=== PATIENT | female | born 1990 | race Caucasian/White ===

== ENCOUNTER 2025-08-20 15:07 | Emergency (ER) | payer OTHER, SELFPAY ==
--- OUTSIDE RECORDS SUMMARY | 2024-08-13 03:00 | XMS_ITS ---
Author Organization [facility] Address [address] [place] [address] Care Team Providers Care Bullet Assembly Press Setter Operator Name Role Phone Jackie Zaman Primary Care Provider [phone] Migration, Provider Unavailable Unavailable REASON FOR VISIT [facility] [place] Encounter Location Date Provider Diagnosis [facility] [address] [place] [address] 08/13/2024 Provider Migration Plan Of Treatment Medication Medication Name Sig Start Date Stop Date Notes Carafate 1 GM Tablet 1 Oral four times a day; Duration: 14 08/18/2023 08/31/2023 Benzonatate 200 MG Capsule 1 Oral three times a day; Duration: 0 07/29/2023 07/29/2023 ,PRN Reason:for cough Azithromycin 250 MG Tablet 2 Oral every day; Duration: 1 07/29/2023 07/29/2023 NexIUM 40 MG Capsule Delayed Release 1 Oral every day; Duration: 14 08/18/2023 08/31/2023 Progress Notes * Chanel FERNANDEZB:1990 ([age] yo F)Acc No.[id number]:08/13/2024 Patient: Faizan SAUNDRAMadai BARRAGAN :1990 A ge:34 Y S ex:Female Phone: Address:[address], [place], [address] * Refills Stop Carafate Tablet, 1 GM, Oral, 56, 1, four times a day, 14 Stop Azithromycin Tablet, 250 MG, Oral, 6, 2, every day, 1 Stop NexIUM Capsule Delayed Release, 40 MG, Oral, 14, 1, every day, 14 Stop Benzonatate Capsule, 200 MG, Oral, 30, 1, three times a day, 0 Subjective: * Chief Complaints: * E MR-Flako Objective: Past Vitals:* 09/01/2023 BP: 138/89 mm Hg, HR: 71 /mi n, Oxygen sat %: 96 %, Wt: 245.37 lbs, Wt-k.30 kg * * Date:
--- OUTSIDE RECORDS SUMMARY | 2024-08-14 03:00 | XMS_ITS ---
Author Organization [facility] Address [address] [place] [id number] Care Team Providers Care Grinding Operator Name Role Phone Jackie Zaman Primary Care Provider [phone] Migration, Provider Unavailable Unavailable Allergies Allergen (clinical drug ingredient) Drug/Non Drug Allergy documented on EMR Reaction Allergy Type Onset Date Status amoxicillin Amoxicillin Unknown Drug Allergy 07/29/2023 Ac tive REASON FOR VISIT EMR-Flako Encounters Encounter Location Date Provider Diagnosis [facility] [address] [place] [address] 08/14/2024 Provider Migration Plan Of Treatment No Information Progress Notes * Zheng FERNANDEZShayB:1990 ([age] yo F)Acc No.[id number]:08/14/2024 Patient: Madai CALERO :1990 A ge:34 Y S ex:Female Phone: Address:[address], [place], [address] Subjective: * Chief Complaints: * E MR-Flako * Allergies: A moxicillin: Allergy - Onset Date 07/29/2023 Objective: Past Vitals:* 09/01/2023 BP: 138/89 mm Hg, HR: 71 /mi n, Oxygen sat %: 96 %, Wt: 245.37 lbs, Wt-k.30 kg * * Date:
--- OUTSIDE RECORDS SUMMARY | 2025-08-19 09:16 | XMS_ITS | Encounter Summary ---
Author Organization [facility] Address [facility] [place] [address] Care Team Providers Care Badger Distiller Operator Name Role Phone Timothy Aviles MD Primary Care Provider + [phone] Reason for Visit * Reason Comments Breast Pain Encounter Details Date Type Department Care Team (Late st Contact Info) Description 08/19/2025 9:16 AM RUSSIAN LANGUAGE INSTRUCTOR - 08/19/2025 10:20 AM [facility] Emergency [facility] Emergency Room [address] [place] [address] Anna Paiz MD [address] [place] [id number] Breast Pain Discharge Disposition: Home or Self Care (Routine Discharge) Social History Tobacco Use Types Packs/Day Years Used Date Smoking Tobacco: Never Smokeless Tobacco: Never Alcohol Use Standard Drinks/Week Comments Yes 0 (1 standard drink = 0.6 oz pur e alcohol) socially Humiliation, Afraid, Rape, and Kick questionnair e Answer Date Recorded Within the last year, have y ou been afraid of your partner or ex-partner? No 03/28/2023 Within the last year, have y ou been humiliated or emotionally abused in other ways by your partner or ex-partner? No Within the last year, have y ou been kicked, hit, slapped, or otherwise physically hurt by your partner or ex-partner? No 03/28/2023 Within the last year, have y ou been raped or forced to have any kind of sexual activity by your partner or ex-partner? No 03/28/2023 Social Connection and Isolation Panel Answer Date Recorded In a typical week, how many times do you talk on the phone with family, friends, or neighbors? More than three times a week 03/23/2023 How often do you get togethe r with friends or relatives? More than three times a week 03/23/2023 How often do you attend [facility] or protestant services? 1 to 4 times per year 03/23/2023 Do you belong to any clubs o r organizations such as yarsani groups, unions, fraternal or athletic groups, or school groups? No 03/23/2023 How often do you attend meet ings of the clubs or organizations you belong to? Never 03/23/2023 Are you , , di vorced, , never , or living with a partner? 03/23/2023 AUDIT-C Answer Date Recorded Q1: How often do you have a drink containing alc ohol? 2-4 times a month 03/23/2023 Q2: How many drinks containi ng alcohol do you have on a typical day when you are drinking? 3 or 4 03/23/2023 Q3: How often do you have si x or more drinks on one occasion? Monthly 03/23/2023 Overall Financial Resource Strain (CARDIA) Answe r Date Recorded How hard is it for you to pa y for the very basics like food, housing, medical care, and heating? Not hard at all 03/28/2023 PHQ-2 Answer Date Recorded Patient Health Questionnaire-2 Score 0 03/23/2023 [facility] - Occupational Stress Questionnaire Answer Date Recorded Do you feel stress - tense, restless, nervous, or anxious, or unable to sleep at night because your mind is troubled all the time - these days? Not at all 03/23/2023 Exercise Vital Sign Answer Date Recorde d On average, how many days pe r week do you engage in moderate to strenuous exercise (like a brisk walk)? 2 days 03/23/2023 On average, how many minutes do you engage in exercise at this level? 20 min 03/23/2023 Hunger Vital Sign Answer Date Recorded Within the past 12 months, y ou worried that your food would run out before you got the money to buy more. Never true 03/28/20 Within the past 12 months, t he food you bought just didn't last and you didn't have money to get more. Never true 03/28/2023 PRAPARE - Transportation Answer Date Re corded In the past 12 months, has l ack of transportation kept you from medical appointments or from getting medications? No 03/14 In the past 12 months, has l ack of transportation kept you from meetings, work, or from getting things needed for daily living? No 03/28/2023 Housing Stability Vital Sign Answer Markell e Recorded In the last 12 months, was t here a time when you were not able to pay the mortgage or rent on time? No 03/28/2023 In the last 12 months, how many places have you lived? 1 03/28/2023 In the last 12 months, was t here a time when you did not have a steady place to sleep or slept in a fci (including now)? No 03/28/2023 Comments No Sex and Gender Information Value Date Recorded Sex Assigned at Female 10/05/2024 3:41 PM RUSSIAN LANGUAGE INSTRUCTOR Legal Sex Female 9:04 PM CDT Gender Identity Not on file Sexual Orientation Not on file documented as of this encounter Last Filed Vital Signs Vital Sign Reading Time Taken Comments Blood Pressure 132/87 08/19/2025 9:20 AM RUSSIAN LANGUAGE INSTRUCTOR Pulse 85 08/19/2025 9:20 AM RUSSIAN LANGUAGE INSTRUCTOR Temperature 36.3 C (97.4 F) 08/19/2025 9:20 AM RUSSIAN LANGUAGE INSTRUCTOR Respiratory Rate 18 08/19/2025 9:20 AM RUSSIAN LANGUAGE INSTRUCTOR Oxygen Saturation 100% 08/19/2025 9:20 AM RUSSIAN LANGUAGE INSTRUCTOR Inhaled Oxygen Concentration - - Weight 104.3 kg (230 lb) 08/19/2025 9:20 AM RUSSIAN LANGUAGE INSTRUCTOR Height 162.6 cm (5' 4) 08/19/2025 9:20 AM RUSSIAN LANGUAGE INSTRUCTOR Body Mass Index 39.48 08/19/2025 9:20 AM RUSSIAN LANGUAGE INSTRUCTOR documented in this encounter Functional Status * Are you deaf or do you have serious difficulty hearing Answer Date of Assessment Author Status No 03/25/2023 5:28 PM CDT Cher Haq , RN Active * Are you blind or do you have serious difficulty seeing, even when wearing glasses? Answer Date of Assessment Author Status No 03/25/2023 5:28 PM Cher Vences , RN Active * Do you have serious difficulty walking or climbing stairs? Answer Date of Assessment Author Status No 03/25/2023 5:28 PM Cher Vences , RN Active * Do you have difficulty dressing or bathing? Answer Date of Assessment Author Status No 03/25/2023 5:28 PM Cher Vences , RN Active * Because of a physical, mental, or emotional condition, do you have difficulty doing errands alone such as visiting a doctor's office or shopping? Answer Date of Assessment Author Status No 03/25/2023 5:28 PM Cher Vences , RN Active * Calculated C-SSRS Risk Score (Lifetime/Recent) Answer Date of Assessment Author Status No Risk Indicated 08/19/2025 9:20 AM RUSSIAN LANGUAGE INSTRUCTOR Tanesha Malone RN Active * Ava Suicide Severity Rating Scale (Screener/Recent Self-Report) Question Answer Date of Assessment Author Status 1. Wish to be (Past 1 Month) No 08/19/2025 9:20 AM Magy Carrasquillo RN Act tonny 2. Non-Specific Active Suicidal Thoughts (Past 1 Month) No 08/19/2025 9:20 AM Magy Carrasquillo RN Act tonny 6. Suicidal Behavior (Lifetime) No 08/19/2025 9:20 AM RUSSIAN LANGUAGE INSTRUCTOR Magy Malone RN Act tonny documented as of this encounter Mental Status * Because of a physical, mental, or emotional condition, do you have serious difficulty concentrating, remembering, or making decisions? Answer Entry Date Author Status No 03/25/2023 5:28 PM Cher Vences RN Active documented in this encounter Discharge Instructions * Discharge Instructions* Anna Paiz MD - 08/19/2025 10:09 AM RUSSIAN LANGUAGE INSTRUCTOR Take the antibiotic clindamycin as prescribed. Take tylenol up to 1000mg every 8 hours as needed for pain. If you have worsening pain, fever, or other concerning symptoms, return to the ER. You may try applying warm compresses to the area. You will need follow up with a general surgeon for additional testing. Call on Thursday for an appointment. Tell them you were in the ER today and need recheck next week. Mammogram and ultrasound may all be arranged at the appointment. You may also need further testing. IAN LANGUAGE INSTRUCTOR IAN LANGUAGE INSTRUCTOR * Attachments The following attachments cannot be sent through Care Everywhere. * Common breast problems (British) documented in this encounter Medications at Time of Discharge clindamycin (CLEOCIN) 300 MG capsule Take 1 capsule (300 mg total) by mouth 3 (three) times daily for 10 days. 30 capsule 08/19/2025 08/29/2025 Bacillus Coagulans-Inulin (PROBIOTIC-PREBI OTIC OR) Take 1 chewable tablet by mouth daily. biotin 300 MCG Tab Take 1 tablet (300 mcg total) by mouth daily. calcium acetate (PHOSLO) 667 MG tablet Take 1 tablet (667 mg total) by mouth daily. Cholecalciferol (VITAMIN D3 ADULT GUMMIES OR) Take 1 chewable tablet by mouth daily. cranberry 500 MG Cap Take 1 capsule by mouth daily. Cyanocobalamin (B-12) 5000 MCG SL Tab ferrous sulfate 220 (44 Fe) MG/5ML liquid Take 5 mLs (220 mg total) by mouth daily. Multiple Vitamins-Mineral s (BARIATRIC FUSION) Chew Tab Chew 1 chewable tablet by mouth daily. traMADol (ULTRAM) 50 MG tabletIndication s:Acute Pain < 7 Day Supply Take 1 tablet (50 mg total) by mouth every 6 (six) hours as needed. Indications: Acute Pain < 7 Day Supply 20 tablet 03/08/2025 documented as of this encounter ED Notes * Magy Malone RN - 08/19/2025 9:18 AM CST Patient complaining of swollen left breast from her nipple up into her armpit. She can palpate a lump. Also complaining of discharge. Hx of piercings that she took out 6 months ago Magy GONZALEZ IAN LANGUAGE INSTRUCTOR IAN LANGUAGE INSTRUCTOR IAN LANGUAGE INSTRUCTOR * Anna Paiz MD - 08/19/2025 9:18 AM CST ED NOTE Chief Complaint Chief Complaint Patient presents with Breast Pain History of Present Illness Madai Guevara is a 35-year-old female who presents today for evaluation of discomfort in left breast, upper outer area with pain extending to left axilla. Also noted bloody discharge from left nipple that began approximately 1 week ago. She had nipple piercings that she removed approximately 6 months ago after her developed discharge.The drainage stopped and symptoms resolved at that time. Pt is a former smoker. Vapes nicotine. Uses marijuana gummies on occasion. Drinks one night per week, max 4 drinks. Had a mammogram in 2012. None since Denies . No hormonal contraception. Not breast feeding. Youngest child age 12. Works at a [employer]. Has active job. . Medical History PAST MEDICAL HISTORY: Past Medical History[1] PAST SURGICAL HISTORY: Past Surgical History[2] FAMILY HISTORY: Family History[3] MEDICATIONS: Prior to Admission medications Medication Sig Start Date End Date Taking? Authorizing Provider clindamycin (CLEOCIN) 300 MG capsule Take 1 capsule (300 mg total) by mouth 3 (three) times daily for 10 days. 08/19/25 08/29/25 Yes Anna Paiz MD Bacillus Coagulans-Inulin (PROBIOTIC-PREBIOTIC OR) Take 1 chewable tablet by mouth daily. Default History Genericprovider biotin 300 MCG Tab Take 1 tablet (300 mcg total) by mouth daily. Default History Genericprovider calcium acetate (PHOSLO) 667 MG tablet Take 1 tablet (667 mg total) by mouth daily. Default HistoryGenericprovider Cholecalciferol (VITAMIN D3 ADULT GUMMIES OR) Take 1 chewable tablet by mouth daily. Default History Genericprovider cranberry 500 MG Cap Take 1 capsule by mouth daily. Default History Genericprovider Cyanocobalamin (B-12) 5000 MCG SL Tab Doc [facility] ferrous sulfate 220 (44 Fe) MG/5ML liquid Take 5 mLs (220 mg total) by mouth daily. Default HistoryGenericprovider Multiple Vitamins-Minerals (BARIATRIC FUSION) Chew Tab Chew 1 chewable tablet by mouth daily. Default History Genericprovider traMADol (ULTRAM) 50 MG tablet Take 1 tablet (50 mg total) by mouth every 6 (six) hours as needed. Indications: Acute Pain < 7 Day Supply 03/08/25 Bryon Maki MD ALLERGIES: Review of patient's allergies indicates: Allergen Reactions Amoxicillin Hives Penicillins Rash SOCIAL HISTORY: Social History[4] Review of Systems Review of Systems Constitutional: Negative for chills, fever and malaise/fatigue. Skin: Negative for rash. Physical Exam Filed Vitals: 08/19/25 0920 BP: 132/87 Pulse: 85 Resp: 18 Temp: 97.4 ??F (36.3 ??C) TempSrc: Temporal SpO2: 100% Weight: 104.3 kg (230 lb) Height: 1.626 m (5' 4) ED Triage Vitals Encounter Vitals Group BP Girls Systolic BP Percentile Girls Diastolic BP Percentile Boys Systolic BP Percentile Boys Diastolic BP Percentile Pulse Resp Temp Temp src SpO2 Weight Height Head Circumference Peak Flow Pain Score Pain Loc Pain Education Exclude from Growth Chart Physical Exam Vitals and nursing note reviewed. Constitutional: General: She is in acute distress. Appearance: She is not ill-appearing. Skin: General: Skin is warm and dry. Capillary Refill: Capillary refill takes less than 2 seconds. Findings: No bruising, erythema or rash. Neurological: General: No focal deficit present. Mental Status: She is alert and oriented to person, place, and time. Psychiatric: Comments: anixous Diagnostic Studies / Procedures ELECTROCARDIOGRAMS: No results found for this visit on 08/19/25. LABORATORY STUDIES: No results found for this visit on 08/19/25. IMAGING STUDIES US BREAST LT [facility] (Results Pending) ED Course / Medical Decision Making Medical Decision Making Madai Guevara, 35, presented with left breast pain with radiation to axilla and bloody drainage from nipple worsening over the past week. Pt has a remote h/o wearing nipple piercings that had gotten infected 6 months ago that she removed and the infection resolved. No recent mammogram. She is afebrilewith stable vs. I do not feel a discrete mass. No skin changes noted. No axillary or SC lymphadenopathy. She tried to express fluid for culture but nothing draining right now. I tried to get a breastUS but since the oracle distribution consultant radiologist is not breast certified the tech cannot do the exam today. Case d/w oracle distribution consultant general surgeon Dr. Garcia. Plan empiric treatment for infection with clindamycin and pt to call for gen surg f/u next week. Wediscussed that she may need Mamogram, US, MRI breast, biopsy. Due to h/o gastric bypass, tylenol 1000mg every 8 hours prn. May try warm compresses. Return precautions reviewed. Amount and/or Complexity of Data Reviewed Radiology: ordered. Risk Prescription drug management. ED Course as of 08/19/25 1055 Sat Aug 19, 2025 1001 10:01 Text to oracle distribution consultant general surgeon oracle distribution consultant Dr. Garcia. [DT] 1003 10:03 Dr. Garcia agrees with plan for clindamyin and f/u with gen surg next week. [DT] ED Course User Index [DT] Anna Paiz MD Medications - No data to display Clinical Impression Breast pain, left (Primary) Breast discharge Disposition: Discharge Discharge Medication List as of 08/19/2025 10:14 AM START taking these medications Details clindamycin (CLEOCIN) 300 MG capsule Take 1 capsule (300 mg total) by mouth 3 (three) times daily for 10 days., Starting 08/19/2025, Until Thu08/29/2025, Eprescribe Class: Eprescribe Pharmacy: [id number] [place], [place] - [address] [place] [address] AT [facility] [address] (Ph #: [phone]) Follow-up: Ziyad Garcia MD [facility] [address] Schedule an appointment as soon as possible for a visit Call for an appointment with [facility] next week. If you want the [place] office let them know. Anna Paiz MD 08/19/2025 10:55 [1] Past Medical History: Diagnosis Date Obesity [2] Past Surgical History: Procedure Laterality Date CHOLECYSTECTOMY GASTRIC BYPASS HERNIA REPAIR [3] No family history on file. [4] Social History Tobacco Use Smoking status: Never Smokeless tobacco: Never Vaping Use Vaping status: Never Used Substance Use Topics Alcohol use: Yes Comment: socially Drug use: Not Currently Types: Marijuana Comment: back in her 20's Anna Paiz MD 08/19/25 1055 IAN LANGUAGE INSTRUCTOR documented in this encounter Plan of Treatment Not on file documented as of this encounter Visit Diagnoses Diagnosis Breast pain, left- Primary Mastodynia Breast discharge Other sign and symptom in breast documented in this encounter Care Teams Badger Distiller Operator Relationship Specialty Start Date End Date Timothy Aviles MD [address] [place] [address] [place] [address] PCP - General PEDIATRICS 03/27/25 documented as of this encounter
--- NOTE | ~2025-08-20 | US_ITS ---
PROCEDURE(S): US breast LT limited INDICATION(S): Pain, erythema, and nipple discharge. Scabbing. Pain in the axilla. COMPARISON(S): None. TECHNIQUE: Grayscale and color Doppler imaging through the areas of pain in the retroareolar region and in the left axilla. FINDINGS: No cystic or solid masses are seen in the area(s) of concern in the breasts. In the left axilla, there are benign-appearing lymph nodes. There is 1 lymph node with eccentric cortical thickening up to 4 mm. IMPRESSION: Minimal cortical thickening and one axillary lymph node, likely reactive from previous infection. No fluid collection is seen to suggest an abscess. 6 month follow-up ultrasound through the left axilla is recommended to follow-up the single lymph node with minimal cortical thickening. This should be performed as an outpatient in a breast center. BI-RADS 3 - Probably benign - short-term follow-up is recommended. Reviewed, dictated and finalized at location B. 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 No fluid collection is seen to suggest an abscess. 6 month f ollow-up ultrasound through the left axilla is recommended to follow-up the sin gle lymph node with minimal cortical thickening. This should be performed as an outpatient in a breast center. BI-RADS 3 - Probably benign - short-term follow-up is recommended.
[2025-08-20 15:14] VITALS: BP 125/75; PULSE 72; RESP 18; TEMP 36.8; O2SAT 98
[2025-08-20 15:37] LABS: BEDSIDEPREGUCG Negative (Negative)
--- NOTE | 2025-08-20 15:42 | ED.SKABFB ---
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 breast Time Seen by Provider: 08/20/25 15:14 History of Present Illness HPI narrative: Patient is a 35-year-old female presents to the ER with left breast pain. She reports her pain started a couple of days ago own. Patient reports she had a nipple piercing in her left nipple but removed approximately 1 year ago. Patient endorses pain with palpation, on pain radiation to her left axilla, excessive redness and swelling. She denies any recent fevers, abdominal pain, shortness of breath, or back pain. Patient denies any other medical history relevant to this ER visit. She reports she went to [place] ER yesterday for evaluation and they put her on ciprofloxacin. Patient reports she has taken 4 doses of ciprofloxacin. Related Data Allergies Allergy/AdvReac Type Severity Reaction Status Date / Time Penicillins Allergy Intermediate Nausea and Verified 08/20/25 15:09 Vomiting Review of Systems Review of Systems: All systems reviewed & are unremarkable except as noted in HPI and below Exam Narrative: GENERAL: Well appearing, obese, non-toxic, in no acute distress. HEAD: Normocephalic, atraumatic. NECK: Supple. No adenopathy, no masses. RESPIRATORY: Airway patent, respirations nonlabored. Clear to auscultation bilaterally, no rales, rhonchi, wheezing. CARDIOVASCULAR: Regular rate and rhythm without murmurs, rubs, or gallops. Peripheral pulses 2+ and equal bilaterally. ABDOMINAL: Soft, nontender, nondistended, no hepatosplenomegaly. Normoactive BS. MUSCULOSKELETAL: Moves all extremities. Strength/ROM intact without gross deformities. SKIN: Warm, dry, normal color. No rashes. Mild left redness and edema surrounding left nipple, no significant palpable abscess under skin, no visible streaking redness. NEURO: A&O X3. Speech clear. Cranial nerves II-XII intact. No ataxic movements. PSYCHIATRIC: Anxious, Normal interaction Course Vital Signs Vital signs: Vital Signs Temperature 36.8 C 08/20/25 15:14 Pulse Rate 72 08/20/25 15:14 Respiratory Rate 18 08/20/25 15:14 Blood Pressure 125/75 08/20/25 15:14 Pulse Oximetry 98 08/20/25 15:14 Oxygen Delivery Room Air 08/20/25 15:14 Temperature 36.5 C 08/20/25 20:29 Pulse Rate 65 08/20/25 20:29 Respiratory Rate 20 08/20/25 20:29 Blood Pressure 131/79 08/20/25 20:29 Pulse Oximetry 100 08/20/25 20:29 Oxygen Delivery Room Air 08/20/25 15:14 [facility] MDM Narrative Medical decision making narrative: Patient is a 35-year-old female presents to the ER with left breast pain. She reports her pain started a couple of days ago own. Patient reports she had a nipple piercing in her left nipple but removed approximately 1 year ago. Patient endorses pain with palpation, on pain radiation to her left axilla, excessive redness and swelling. She denies any recent fevers, abdominal pain, shortness of breath, or back pain. Patient denies any other medical history relevant to this ER visit. She reports she went to [place] ER yesterday for evaluation and they put her on ciprofloxacin. Patient reports she has taken 4 doses of ciprofloxacin. Labs Ordered: CBC, CMP, lactic acid, UA Imaging Ordered: Left breast ultrasound Medications Ordered: 1 L normal saline IV, Morphine 4 mg IV x 2, Cipro PO, Lidocaine patch Results: Patient's ultrasound indicates no sonographic abnormalities seen in the subareolar area of interest. No mass or abnormal fluid collection. Lymph nodes left axilla measuring up to 6 mm short axis diameter, which is within normal limits. Diagnosis: Cellulitis, lymphadenopathy Patient Education/Shared MDM: Results of lab work and imaging shared with patient. She endorses improvement of symptoms following pain medication administration. Patient strongly advised to follow-up with her PCP in the next 2-3 days for wound evaluation. She will be discharged home with a prescription for [place] (pt is unable to take NSAIDs d/t previous gastric bypass surgery). Strict return precautions provided. Patient verbalized understanding and is in agreement with plan. Vital signs stable at time of discharge. All questions answered. Differential Diagnosis Differential Diagnosis: Left breast cellulitis, left breast abscess, lymphadenopathy Lab Data [facility] Lab Attestation statement: I personally reviewed the patient's lab results. 08/20/25 16:05 08/20/25 16:05 Labs: Lab Results 08/20/25 08/20/25 Range/Units 15:29 16:05 WBC 5.4 (4.5-10.0) K/mm3 RBC 4.28 (4.2-5.4) M/mm3 Hgb 13.1 (12.0-15.0) g/dL Hct 40.6 (37.0-47.0) % MCV 94.9 (80-100) fl MCH 30.6 (26-34) pg MCHC 32.3 (32-36) g/dl RDW 12.2 (11.5-14.5) % Plt Count 252 (150-375) k/mm3 MPV 10.6 H (7.4-10.4) fl Immature Gran % (Auto) 0.4 (0-0.5) % Neut % (Auto) 56.9 (45.5-73.1) % Lymph % (Auto) 34.0 (18.3-44.2) % Weld % (Auto) 6.5 (2.6-8.5) % Eos % (Auto) 1.8 (0-4.4) % Baso % (Auto) 0.4 (0.2-1.2) % Lymph # (Auto) 1.84 (0.9-3.2) K/mm3 Weld # (Auto) 0.4 (0.1-0.6) K/mm3 Eos # (Auto) 0.1 (0-0.3) K/mm3 Baso # (Auto) 0.0 (0.0-0.1) K/mm3 Abs Immat Gran (auto) 0.02 (0.00-0.031) K/mm3 Absolute Neuts (auto) 3.1 (1.3-6.7) K/mm3 Absolute Nucleated RBC 0.000 (0.0-0.012) K/mm3 Nucleated RBC % 0.0 (0.0-0.2) % Sodium 137 (137-145) mmol/L Potassium 4.5 (3.4-5.0) mmol/L Chloride 105 (98-107) mmol/L Carbon Dioxide 27 (22-30) mmol/L Anion Gap 5 (4-12) mmol/L BUN 13 (7-17) mg/dL Creatinine 0.75 (0.7-1.0) mg/dL Estim Creat Clear Calc 107 ml/min Estimated GFR > 60 (59 - ) Glucose 81 (65-110) mg/dL Lactic Acid 0.9 (0.7-2.0) mmol/L Calcium 9.0 (8.4-10.2) mg/dL Total Bilirubin 0.2 (0.2-1.3) mg/dL AST 20 (14-36) U/L ALT 18 (6-35) U/L Alkaline Phosphatase 78 (38-126) U/L Total Protein 7.4 (6.3-8.2) g/dL Albumin 4.2 (3.5-5.1) g/dL Urine Color Yellow (Yellow) Urine Appearance Clear (Clear) Urine pH 6.5 (5.0-9.0) Ur Specific [place] 1.010 (1.001-1.035) Urine Protein Negative (Negative) mg/dL Urine Glucose (UA) Negative (Negative) mg/dL Urine Ketones Negative (Negative) mg/dL Ur Blood (Man) Trace (Negative) Urine Nitrate Negative (Negative) Urine Bilirubin Negative (Negative) Urine Urobilinogen 0.2 (<2.0) mg/dL Leukocyte Esterase Rfl Negative (Negative) CARLOS/UL Urine RBC 3-5 H (0-2) /hpf Urine WBC 0-5 (0-3) /hpf Ur Squamous Epith Cells None seen (Few) /hpf Urine Bacteria None seen /hpf Urine Casts 0-2 POC Urine HCG, Qual Negative (Negative) Imaging Data Attestation: I personally reviewed and interpreted this imaging study as follows: Radiologist's impression: Patient's ultrasound indicates no sonographic abnormalities seen in the subareolar area of interest. No mass or abnormal fluid collection. Lymph nodes left axilla measuring up to 6 mm short axis diameter, which is within normal limits. Discharge Plan Discharge Clinical Impression: Cellulitis of left breast, Axillary adenopathy, Breast pain, left Patient Disposition: Home Condition: Stable Instructions: Antibiotic Form, Cellulitis (ED) Additional Instructions: Please return to the ER with any worsening symptoms. Follow-up with primary care provider in the next 2-3 days for further evaluation. Take all medications as prescribed, including regularly scheduled medications. Please complete your full dose of antibiotics that was prescribed at the outside hospital. You may take [place] as needed for pain control. Patient Language: [place] Prescriptions: New hydrocodone-acetaminophen 5-300 mg tablet 1 tablet PO Q4-6H PRN (Reason: pain) Qty: 10 0RF lidocaine 5 % adhesive patch,medicated 1 patch topical DAILY Qty: 30 0RF Rx Instructions: leave on most painful area for up to 12 hrs Follow-up/Referrals: Timothy Aviles MD [Primary Care Provider, Internal Medicine] Stand Alone Forms: Work/School Release IP Time of Disposition: 20:57
--- OUTSIDE RECORDS SUMMARY | 2025-08-20 15:42 | XMS_ITS | Encounter Summary ---
Author Organization [facility] Address [facility] [place] [address] Care Team Providers Care Development Editor Name Role Phone Timothy Aviles MD Primary Care Provider + [phone] Encounter Details Date Type Department Care Team (Latest Contact Info) Description 08/19/2025 Travel Social History Tobacco Use Types Packs/Day Years [...] week 03/23/2023 How often do you attend [facility] or sabianist services? 1 to 4 times per year 03/23/2023 Do you belong to any clubs o r organizations such as faith groups, unions, fraternal or athletic groups, or [...] Recorded Patient Health Questionnaire-2 Score 0 03/23/2023 [facility] - Occupational Stress [...] money to buy more. Never true 03/28/20 23 Within the past 12 months, t he food you bought just didn't last and you didn't have money to get more. Never true 03/28/2023 PRAPARE - Transportation Answer Date Re corded In the past 12 months, has l ack of transportation kept you from medical appointments or from getting medications? No 07/1 01/2023 In the past 12 months, has l [...] place to sleep or slept in a residential (including now)? No 03/28/2023 Comments No Sex and Gender Information Value Date Recorded Sex Assigned at Female 10/05/2024 3:41 PM GARMENT PARTS CUTTER MACHINE Legal Sex Female 9:04 PM CDT Gender Identity Not on file Sexual Orientation Not on file documented as of this encounter Functional Status * Are you deaf or do you have serious difficulty hearing Answer Date of Assessment Author Status No 03/25/2023 5:28 PM Cher Vences RN Active * Are you blind or [...] 03/25/2023 5:28 PM Cher Vences RN Active * Because of a physical, mental, or emotional condition, do you have difficulty doing errands alone such as visiting a doctor's office or shopping? Answer Date of Assessment Author Status No 03/25/2023 5:28 PM Cher Vences RN Active * Calculated C-SSRS Risk Score (Lifetime/Recent) Answer Date of Assessment Author Status No Risk Indicated 08/19/2025 9:20 AM Tanesha Carrasquillo RN Active * Nance Suicide Severity Rating Scale (Screener/Recent Self-Report) Question Answer Date of Assessment Author Status 1. Wish to be (Past 1 Month) No 08/19/2025 9:20 AM Magy Carrasquillo RN Act tonny 2. Non-Specific Active Suicidal Thoughts (Past 1 Month) No 08/19/2025 9:20 AM Magy Carrasquillo RN Act tonny 6. Suicidal Behavior (Lifetime) No 08/19/2025 9:20 AM Magy Carrasquillo RN Act tonny documented as of this encounter Mental Status * Because of a physical, mental, or emotional condition, do you have serious difficulty concentrating, remembering, or making decisions? Answer Entry Date Author Status No 03/25/2023 5:28 PM CDT Cher Haq RN Active documented in this encounter Plan of Treatment Not on file documented as of this encounter Visit Diagnoses Not on filedocumented in this encounter Care Teams Development Editor Relationship Specialty Start Date End Date Timothy Aviles MD [address] [place] [address] [place] [address] PCP - General PEDIATRICS 03/27/25 documented as of this encounter
--- OUTSIDE RECORDS SUMMARY | 2025-08-20 15:42 | XMS_ITS | Patient Health Record ---
Author Organization [facility] Address [address] [place] [address] Care Team Providers Care Dry Yard Worker Name Role Phone Jackie Zaman Primary Care Provider [phone] Allergies Allergen (clinical drug ingredient) Drug/Non Drug Allergy documented on EMR Reaction Allergy Type Onset Date Status amoxicillin Amoxicillin Unknown Drug Allergy 07/29/2023 Ac tive Reason For Referral No Information Medications Medication SIG (Take, Route, Fr equency, Duration) Notes Start Date End Date Status predniSONE 20 MG Tablet 3 tablets once a day for 2 days, 2 tablets once a day for 2 days, 1 tablet once a day for 2 days, 0.5 tablet once a day for 2 days Orally daily; Duration: 8 days 04/04/2025 Active Social History Tobacco Use: Social History Observation Description Date Details (start date - stop date) Never Smoker NA - NA Social History Household: Social Info Question Answer Notes Household Marital status: single Tobacco Use: Social Info Question Answer Notes Tobacco Control (Standard) Tobacco use: Nonsmoker Additional Details Category Social Info Options Details Miscellaneous: Occupation: works full-ti me Drug/Alcohol: Do you drink alcohol? Socia lly Problems Problem Type SNOMED Code ICD Code Onset Dates Problem Status W/U Status Risk Notes Problem History of bariatric surgical procedure (540806510) Bariatric surgery status (Z98.84) 3 Active confirmed Problem Splenomegaly (65333522) Splenomegaly, not elsewhere classified (R16.1) 3 Active confirmed Problem Left upper quadrant pain (992877692) Left upper quadrant pain (R10.12) 3 Active confirmed Problem Anemia (110904865) Anemia, unspecified (D64.9) 3 Active confirmed Problem Iron deficiency anemia (46406434) Iron deficiency anemia, unspecified (D50.9) 3 Active confirmed Vital Signs Heart Rate 86 /min 04/04/2025 Temperature 97.2 degrees Fahrenheit 04/04/2025 Oximetry 99 % 04/04/2025 Blood pressure diastolic 78 mm Hg 04/04/2025 Weight-kg 113.22 kg 04/04/2025 Blood pressure systolic 120 mm Hg 04/04/2025 Weight 249.6 lbs 04/04/2025 Encounters Encounter Location Date Provider Diagnosis [address] [address] 04/04/2025 Jackie Zaman Thoracic spine pain M54.6 and Muscle spasm M62.[address] [address] 03/09/2025 Jackie Zaman Assessments Encounter Date Diagnosis (ICD Code) Assessment Notes Treatment Notes Treatment Clinical Notes Section Notes 04/04/2025 Muscle spasm (ICD-10 - M62.838) -Workman's comp doctor is managing tramadol and flexeril -Hx of bariatric surgery and ulcers, she has not had any anti-inflammatori es - Prescribe oral steroid taper (8 days) to reduce inflammation. Dosin tablets daily for two days, 2 for two days, 1 for two days, and half of 1 for two days. Patient declined steroid injection and opted for oral regimen. Advise short-term use only. 04/04/2025 Thoracic spine pain (ICD-10 - M54.6) - Muscular injulikely due to work-related strain. No evidence of acute bony or disc injury based on prior CT. Symptoms attributed to muscular etiology.- She [facility] and seeing compay doctor weekly. Physical therapy will start on 04/07/25 -She is here for second opinion. - Monitor response to therapy. Consider advanced imaging (MRI) if no improvement with conservative management or if symptoms worsen. Plan Of Treatment No Information Insurance Providers Payer Name Payer Address Payer Phone Subscriber Number Group Number Insured Name Patient Relationship to Insured Coverage Start Date Coverage End Date [facility] [address] [place] [address] [id number] AlisonMadai barragan Self - patient is the insured 5 Medical (General) History Medical History History ICD Code Iron deficiency anemia, unspecified D50. 9 Anemia, unspecified D64.9 Left upper quadrant pain R10.12 Splenomegaly, not elsewhere classified R 16.1 Bariatric surgery status Z98.84
--- OUTSIDE RECORDS SUMMARY | 2025-08-20 15:42 | XMS_ITS | Clinical Summary ---
Author Organization [facility] Address [address] [place] [address] Care Team Providers Care Cafeteria Or Lunchroom Checker Name Role Phone Timothy Aviles MD Primary Care Provider [phone] Allergies Active Allergy Reactions Criticality Noted Date Comments Amoxicillin Hives 03/15/2019 Penicillins Rash Low 03/15/2019 Medications Cyanocobalamin (B-12) 5000 MCG SL Tab Active Cholecalciferol (VITAMIN D3 ADULT GUMMIES OR) Take 1 chewable tablet by mouth daily. Active cranberry 500 MG Cap Take 1 capsule by mouth daily. Active Bacillus Coagulans-Inuli n (PROBIOTIC-PREB IOTIC OR) Take 1 chewable tablet by mouth daily. Active biotin 300 MCG Tab Take 1 tablet (300 mcg total) by mouth daily. Active calcium acetate (PHOSLO) 667 MG tablet Take 1 tablet (667 mg total) by mouth daily. Active ferrous sulfate 220 (44 Fe) MG/5ML liquid Take 5 mLs (220 mg total) by mouth daily. Active Multiple Vitamins-Minera ls (BARIATRIC FUSION) Chew Tab Chew 1 chewable tablet by mouth daily. Active traMADol (ULTRAM) 50 MG tabletIndicatio ns:Acute Pain < 7 Day Supply Take 1 tablet (50 mg total) by mouth every 6 (six) hours as needed. Indications: Acute Pain < 7 Day Supply 20 tablet 03/08/2025 Active clindamycin (CLEOCIN) 300 MG capsule Take 1 capsule (300 mg total) by mouth 3 (three) times daily for 10 days. 30 capsule 08/19/2025 08/29/20 25 Active Active Problems Problem Noted Date Diagnosed Date Abdominal pain 03/23/2023 Hematemesis 03/23/2023 Encounters Date Type Department Care Team Description 08/19/2025 9:16 AM [facility] - 08/19/2025 10:20 AM [facility] Emergency [facility] Emergency Room [address] [place] [address] Anna Paiz MD Breast Pain Discharge Disposition: Home or Self Care (Routine Discharge) 08/19/2025 Travel from Last 3 Months Social History Tobacco Use Types Packs/Day Years Used Date Smoking Tobacco: Never Smokeless Tobacco: Never Tobacco Cessation:Counseling Given: Not Answered Alcohol Use Standard Drinks/Week Comments Yes 0 [...] week 03/23/2023 How often do you attend chur ch or yarsani services? 1 to 4 times per year 03/23/2023 Do you belong to any clubs o r organizations such as sikhism groups, unions, fraternal or athletic groups, or [...] Recorded Patient Health Questionnaire-2 Score 0 03/23/2023 [facility] - [...] place to sleep or slept in a penitentiary (including now)? No 03/28/2023 Comments No Sex and Gender Information Value Date Recorded Sex Assigned at Female 10/05/2024 3:41 PM [facility] Legal Sex Female 9:04 PM CDT Gender Identity Not on file Sexual Orientation Not on file Last Filed Vital Signs Vital Sign Reading Time Taken Comments Blood Pressure 132/87 08/19/2025 9:20 AM [facility] Pulse 85 08/19/2025 9:20 AM [facility] Temperature 36.3 C (97.4 F) 08/19/2025 9:20 AM [facility] Respiratory Rate 18 08/19/2025 9:20 AM [facility] Oxygen Saturation 100% 08/19/2025 9:20 AM [facility] Inhaled Oxygen Concentration - - Weight 104.3 kg (230 lb) 08/19/2025 9:20 AM [facility] Height 162.6 cm (5' 4) 08/19/2025 9:20 AM [facility] Body Mass Index 39.48 08/19/2025 9:20 AM [facility] Plan of Treatment Health Maintenance Due Date Last Done Comments Cervical Cancer Screening Pap Smear (Age 30 to 64) Every 3 Years 1988 Annual Physical 01/16/1991 Hepatitis C 01/16/2006 HPV Vaccines (1 - 3-dose SCDM series) 01/16/2015 Cervical Cancer Screening Pap with HPV Testing (Age 30 to 64) Every 5 Years 01/16/2018 Cervical Cancer Screening with HPV 01/16/2018 DTaP, Tdap and Td Vaccines (8 - Td or Tdap) 08/23/2023 08/23/2013, 03/30/2010, 04/16/2004, Additional history exists COVID-19 Vaccine ( season) 2025 07/08/2021, 06/17/2021 Influenza Adult (#1) 2025 08/23/2013 Hepatitis B Vaccines Completed 01/29/1998, 08/28/1997, 07/26/1997 Hepatitis A Vaccines Aged Out No long er eligible based on patient's age to complete this topic Meningococcal B Vaccine Aged Out No l onger eligible based on patient's age to complete this topic Meningococcal Vaccine Aged Out No freda idania eligible based on patient's age to complete this topic Pneumococcal Vaccine: Pediatrics (0 to 5 Years) and At-Risk Patients (6 to 49 Years) Aged Out No longer eligible based on patient's age to complete this topic RSV Immunizations Under 20 Months Aged Out No longer eligible based on patient's age to complete this topic Insurance [employer] ON LICENSE OF [facility] Advance Directives * Full Code (Latest Code Status on File) Date Activated Date Inactivated Comments 03/23/2023 6:22 PM 03/28/2023 4:56 PM * Full Code Date Activated Date Inactivated Comments 03/23/2023 5:55 PM 03/23/2023 6:22 PM * Full Code Date Activated Date Inactivated Comments 03/23/2023 4:36 AM 03/23/2023 5:54 PM Care Teams Cafeteria Or Lunchroom Checker Relationship Specialty Start Date End Date Timothy Aviles MD [address] [place] [address] [place] [address] PCP - General PEDIATRICS 03/27/25
--- OUTSIDE RECORDS SUMMARY | 2025-08-20 15:42 | XMS_ITS | Encounter Summary ---
Author Organization [facility] Address [address] [place] [address] Care Team Providers Care Grips Name Role Phone Cesilia Kumar NP Primary Care Provider [phone] None, Provider Primary Care Provider Jelena Chen NP Primary Care Provider [phone] Timothy Aviles MD Primary Care Provider [phone] Encounter Details Date Type Department Care Team (Late st Contact Info) Description 04/28/2013 Abstract [facility] CONVERSION [address] [place] [address] , Generic Conversion, Social History Tobacco Use Types Packs/Day Years Used Date Smoking Tobacco: Never Assessed Comments Unknown Sex and Gender Information Value Date Recorded Sex Assigned at Female 10/05/2024 3:41 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 Legal Sex Female 9:04 PM CDT Gender Identity Not on file Sexual Orientation Not on file documented as of this encounter Plan of Treatment Not on file documented as of this encounter Visit Diagnoses Not on filedocumented in this encounter Care Teams Grips Relationship Specialty Start Date End Date Cesilia Kumar NP [facility] [address] [place] [id number] PCP - General NURSE PRACTITIONER 03/15/19 03/23/23 None, Provider, PCP - General UNKNOWN PHYSICIAN SPECIALTY 03/24/23 08/16/23 Jelena Vásquez NP [address] [place] [address] PCP - General NURSE PRACTITIONER 08/17/23 03/26/25 Timothy Aviles MD [address] [place] [address] [place] [address] PCP - General PEDIATRICS 03/27/25 documented as of this encounter
[2025-08-20] MEDS: MORPHINE SULFATE (*CRX) 4 MG/ML INJ IV PUSH ×2 (15:56→20:30)
[2025-08-20] MEDS: SODIUM CHLORIDE 0.9% IV 1,000 ML 999 ML IV CONT (15:56)
[2025-08-20 16:10] LABS: Hematocrit 40.6 % (37.0-47.0); Hemoglobin 13.1 g/dL (12.0-15.0); Immature Granulocyte Percent A 0.4 % (0-0.5); Lymphocytes Absolute Auto 1.84 K/mm3 (0.9-3.2); Mean Corpuscular HGB Conc 32.3 g/dl (32-36); Mean Corpuscular Hemoglobin 30.6 pg (26-34); Mean Corpuscular Volume 94.9 fl (80-100); Nucleated Red Blood Cells Absolute Auto 0.000 K/mm3 (0.0-0.012); Nucleated Red Blood Cells Perc 0.0 % (0.0-0.2); Platelet Count Result 252 k/mm3 (150-375); Red Blood Count 4.28 M/mm3 (4.2-5.4); White Blood Count 5.4 K/mm3 (4.5-10.0)
[2025-08-20 16:15] LABS: Add Urine Microscopic? YES; Appearance Urine Clear (Clear); Glucose Urine UA Negative (Negative); Leukocyte Esterase Ur Negative LEU/UL (Negative); Nitrate Urine Negative (Negative); Non Pathogenic Casts 0-2; Specific Grav Ur 1.010 (1.001-1.035)
[2025-08-20 16:28] LABS: Alanine Aminotransferase 18 U/L (6-35); Albumin Level 4.2 g/dL (3.5-5.1); Alkaline Phosphatase 78 U/L (38-126); Anion Gap 5 mmol/L (4-12); Aspartate Amino Transferase 20 U/L (14-36); Bilirubin,Total 0.2 mg/dL (0.2-1.3); Blood Urea Nitrogen 13 mg/dL (7-17); Calcium 9.0 mg/dL (8.4-10.2); Carbon Dioxide 27 mmol/L (22-30); Chloride 105 mmol/L (98-107); Estimated CRCL calculation 107 ml/min; Estimated Glomerular Filt Rate > 60; Glucose 81 mg/dL (65-110); Potassium 4.5 mmol/L (3.4-5.0); Sodium 137 mmol/L (137-145); Total Protein 7.4 g/dL (6.3-8.2)
[2025-08-20 20:29] VITALS: BP 131/79; PULSE 65; RESP 20; TEMP 36.5; O2SAT 100
[2025-08-20] MEDS: LIDOCAINE 5% PATCH 1 PATCH TRANSDERM (20:44)
[2025-08-20] MEDS: CIPROFLOXACIN 500 MG TAB PO (20:44)
[2025-08-20 21:00] VITALS: BP 135/85; PULSE 70; RESP 20; O2SAT 100
== END 2025-08-20 21:00 | disposition home or self-care (01) ==
PROVIDERS: Emergency Provider Registered Nurse; PCP Pediatrics
DX: N61.0 Mastitis without abscess (principal); N64.4 Mastodynia; R59.0 Localized enlarged lymph nodes
CPT/HCPCS: 36415; 76642; 80053; 81001; 81025; 83605; 85025; 96361; 96374; 96376; 99284; A9270; J2270; J7030